=== PATIENT | male | born 1950 | race Caucasian/White ===

== ENCOUNTER 2017-11-03 11:23 | Outpatient (CLI) | payer OTHER | END 2017-11-03 11:31 | disposition home or self-care (01) | LOC: LAB 11:23 | DX: K29.40 Chronic atrophic gastritis without bleeding (principal); K90.0 Celiac disease ==

== ENCOUNTER 2025-04-07 08:03 | Emergency (ER) | payer OTHER ==
[~2025-04-07] VITALS: Ht 170.2 cm; Wt 80.3 kg
[2025-04-07 08:17] VITALS: BP 130/85; O2SAT 98
[2025-04-07] MEDS ORDERED: PLAVIX75 MG PO (08:19)
[2025-04-07] MEDS ORDERED: TAMS0.4C PO (08:19)
[2025-04-07] MEDS ORDERED: PEPCID AC20 MG (08:19)
[2025-04-07] MEDS ORDERED: LIPITOR20 MG PO (08:19)
[2025-04-07 11:24] LABS: ALBUMIN 3.5 gm/dL (3.4-5.0); BILIRUBIN TOTAL 0.37 mg/dL (0.3-1.2); CALCIUM 10.2 mg/dL (8.5-10.1); GFR 6.85; GLOBULINA 3.7 G/DL (2.4-3.5); POTASSIUM 4.71 mEq/L (3.5-5.1); TOTAL PROTEIN 7.2 gm/dL (6.4-8.2)
[2025-04-07 11:29] LABS: CREATININE SERUM 7.72 mg/dL (0.70-1.30)
[2025-04-07 11:53] LABS: BASO % 0.4 % (0.1-1.2); EOS # 0.21 (0.04-0.54); EOS % 2.5 % (0.7-7.0); HEMATOCRIT 33.9 % (40.1-51.0); HEMOGLOBIN 11.2 g/dL (13.7-17.5); LYMPH # 2.48 (1.18-3.74); LYMPH % 29.6 % (19.3-53.1); MEAN CORPUSCULAR HEMOGLOBIN 31.9 pg (25.6-32.2); MONO # 0.57 (0.24-0.82); MONO % 6.8 % (4.7-12.5); NEUT # 5.06 (1.56-6.13); NEUT % 60.5 % (34.0-71.1); PLATELET COUNT 193 K/uL (163-369); RED BLOOD COUNT 3.51 M/uL (4.63-6.08); RED CELL DISTRIBUTION WIDTH 13.3 % (11.6-14.4)
== END 2025-04-07 12:47 | disposition home or self-care (01) ==
LOC: ER 08:08
PROVIDERS: Emergency Medicine
DX: N18.6 End stage renal disease (principal); Z95.0 Presence of cardiac pacemaker